=== PATIENT | male | born 1970 | race Caucasian/White ===

== ENCOUNTER 2017-01-22 09:14 | Emergency (ER) | payer OTHER ==
[~2017-01-22] VITALS: Ht 177.8 cm; Wt 79.0 kg
[2017-01-22 10:14] VITALS: Ht 177.8 cm; Wt 79.0 kg
--- NOTE | 2017-01-22 11:09 | ERD ---
ER Documentation Chief Complaint Date/Time DATE: 01/22/17 TIME: 11:02 Chief Complaint COUGH TODAY HPI 46y/o male, with history of DMT2 well controlled, presents to the emergency department complaining of 4 days of worsening of respiratory symptoms, associated with subjective fever, productive cough of greenish sputum and general malaise. The patient has tried [id number] medication without improvement of the symptoms, he would like to get a Rx for antibiotics ROS Positive for fever, cough of productive sputum, fatigue. Denies shortness of breath. All systems reviewed and are negative except as per history of present illness. PMhx/Soc History of type 2 diabetes mellitus, well-controlled on Lantus and Humalog. The patient has primary care at [facility] Hx Miscellaneous Medical Probl: Yes (DM) Hx Alcohol Use: No Hx Substance Use: No Hx Tobacco Use: Yes Smoking Status: Never smoker Physical Exam Vitals Vital Signs Date Time Temp Pulse Resp B/P Pulse Ox O2 Delivery O2 Flow Rate FiO2 01/22/17 10:14 98.2 90 20 129/78 99 Physical Exam Patient is in no acute distress, vital signs stable. Alert and fully oriented. EYES: PERRLA, EOMI, Sclerae and conjunctiva appear normal. EARS: Canals clear, tympanic membranes WNL THROAT: Erythematous oropharynx. NECK: Supple, No lymphadenopathy. Full ROM without pain or tenderness. HEART: RRR, no rubs, murmurs, clicks or gallops. LUNGS: Bilateral rhonchi to auscultation, no wheezing ABDOMEN: Soft, non-tender without masses or hepatosplenomegaly. EXTREMITIES: No edema bilaterally. Procedures/MDM No flu vaccine (+) sick contact Antibiotics likely not indicated. Advised patient that this is probably a viral illness and a self-limited process that would resolve on its own. Discussed that the overuse of antibiotics may lead to antibiotic resistance in the future and can have serious side effects; however, the patient insisted on a Rx for Abx, I recommended a trial of symptomatic treatment for 48h if doesn't work, start the Abx prescribed. Departure Condition: Stable AURELIA HOFFMAN MD Jan 22, 2017 11:08
[2017-01-22] MEDS ORDERED: PROM5SYR2 PO (11:12)
[2017-01-22] MEDS ORDERED: AZIT250T94 PO (11:12)
== END 2017-01-22 11:37 | disposition home or self-care (01) ==
LOC: FTE 09:14
DX: R05 Cough (principal); R50.9 Fever, unspecified; E11.9 Type 2 diabetes mellitus without complications; Z79.4 Long term (current) use of insulin; Z87.891 Personal history of nicotine dependence
CPT/HCPCS: 99284

== ENCOUNTER 2017-06-21 13:44 | Emergency (ER) | END 2017-06-21 15:21 | disposition home or self-care (01) ==